=== PATIENT | male | born 1985 | race Caucasian/White ===

== ENCOUNTER 2020-04-13 04:08 | Emergency (ER) | payer OTHER ==
[~2020-04-13] VITALS: Ht 180.3 cm; Wt 86.2 kg
[2020-04-13] MEDS ORDERED: FLEXERIL PO (04:17)
[2020-04-13 05:15] LABS: CALCIUM 8.1 mg/dL (8.5-10.1); CREATININE 1.3 mg/dL (0.6-1.3); POTASSIUM 3.2 mmol/L (3.5-5.1)
[2020-04-13] MEDS ORDERED: MELOXICAM15 MG PO (05:17)
[2020-04-13 05:19] LABS: ALBUMIN 3.5 g/dL (3.4-5.0); TOTAL BILIRUBIN 0.4 mg/dL (<0.1-1.0); TOTAL PROTEIN 6.3 g/dL (6.4-8.2)
[2020-04-13 06:08] LABS: ABSOLUTE EOSINOPHILS 0.3 thou/uL (0.0-0.7); ABSOLUTE LYMPHOCYTES 2.4 thou/uL (0.8-5.3); ABSOLUTE MONOCYTES 0.5 thou/uL (0.0-1.2); ABSOLUTE NEUTROPHILS 3.2 thou/uL (1.6-8.1); BASOPHILS 0.7 %; EOSINOPHILS 4.5 %; HEMATOCRIT 39.6 % (42.0-52.0); HEMOGLOBIN 13.5 gm/dL (14.0-18.0); LYMPHOCYTES 38.1 %; MCH 31.4 pg (26.0-34.0); MCHC 34.1 g/dL (28.0-37.0); MCV 91.9 fL (80.0-100.0); MONOCYTES 7.1 %; MPV 7.6 fl. (7.2-11.1); NUCLEATED RBCS 0 /100WBC; PLATELET COUNT* 221 thou/uL (150-400); POLYS 49.6 %; RBC 4.31 mil/uL (4.50-6.00); WBC 6.4 thou/uL (4.0-11.0)
[2020-04-13 06:14] VITALS: BP 96/56
--- NOTE | 2020-04-13 10:12 | EKG ---
[place] [address] ELECTROCARDIOGRAM REPORT Name: ARTURO MAHARAJ JR Room: [facility]#: [id number] Admission: 04/13/20 Attend Phys: Discharge: 04/13/20 Date of : 83 Date of Service: 04/13/20 0433 Report #: [id number] THIS REPORT FOR: //name// [facility] ED Test Date: 2020-04-13 Test Time: 04:33:37 Pat Name: ARTURO MAHARAJ Department: Room: Gender: Welder/Installer: : 1985 Requested By: Mishel Rascon Order Number: [id number] MD: Patrick Lam Measurements Intervals [place] Rate: 50 P: 60 OK: 178 QRS: 57 QRSD: 94 T: 24 QT: 457 QTc: 417 Interpretive Statements Sinus bradycardia Baseline wander in lead(s) II,III,aVR,aVL,aVF,V5,V6 No previous ECG available for comparison Electronically Signed On 04-13-2020 10:12:34 CDT by Patrick Lam [email or web address] <ELECTRONICALLY SIGNED> By: Patrick Lam MD, [facility] 04/13/20 1012 0433 0433 Patrick Lam MD, [facility] /EPI
== END 2020-04-13 06:28 | disposition home or self-care (01) ==
LOC: M.ERS 04:08
PROVIDERS: Personal Emergency Response Attendant
DX: G56.03 Carpal tunnel syndrome, bilateral upper limbs (principal); R55 Syncope and collapse